=== PATIENT | male | born 1980 | race Caucasian/White ===

== ENCOUNTER 2018-02-28 13:39 | Emergency (ER) | payer MEDICAID, SELFPAY ==
[2018-02-28 13:42] VITALS: BP 153/98; PULSE 66; RESP 18; TEMP 36.8; O2SAT 96
[2018-02-28 13:56] LABS: Bilirubin Negative (Negative); Blood Negative (Negative); Clarity Clear; Glucose Negative (Negative); Ketones Negative (Negative); Leukocyte Esterase Negative (Negative); Nitrite Negative (Negative); Specific Gravity 1.015 (1.005-1.025); pH 6.5 (5-8)
[2018-02-28] MEDS: Normal Saline 1,000 ML 1000 ML IV (14:20)
[2018-02-28 14:43] LABS: Absolute Basophil Count 0.03 k/cumm (0.0-0.2); Absolute Eosinophil Count 0.17 k/cumm (0.0-0.7); Absolute Lymphocyte Count 1.37 k/cumm (1.2-3.4); Absolute Monocyte Count 0.46 k/cumm (0.11-0.7); Absolute Neutrophil Count 3.33 k/cumm (1.2-6.7); Basophils % 0.6; Eosinophils % 3.2; HCT 45.6 % (40.0-50.0); HGB 16.3 g/dL (13.5-17.5); Lymphocytes % 25.6; Mean Corp. HGB Concentration 35.7 g/dL (32.0-36.0); Mean Corpuscular Hemoglobin 34.2 pg (27.0-33.0); Mean Corpuscular Volume 95.6 fL (80-95); Mean Platelet Volume 10.6 fL (8.0-11.0); Monocytes % 8.6; Platelet Count 150 x1000/uL (130-400); RBC 4.77 m/cumm (4.50-6.00); RBC Distribution Width 12.5 % (11.8-14.1); White Blood Cell Count 5.36 k/cumm (4.4-10.8)
[2018-02-28 14:57] LABS: ALT 413 U/L (12-78); AST 359 U/L (15-37); Albumin 3.7 g/dL (3.4-5.0); Alkaline Phosphatase 131 U/L (46-116); Anion Gap 7.2 mmol/L (3-11); BUN 17 mg/dL (7-18); Bilirubin, Total 1.5 mg/dL (0.2-1.0); CO2 28.8 mmol/L (21.0-32.0); CREATININE 0.81 mg/dL (0.70-1.30); Calcium 9.2 mg/dL (8.5-10.1); Chloride 103 mmol/L (98-107); Glucose 101 mg/dL (70-100); Magnesium 2.2 mg/dL (1.8-2.4); Potassium 4.1 mmol/L (3.5-5.1); Sodium 139 mmol/L (136-145); Total Protein 8.3 g/dL (6.4-8.2)
[2018-02-28 15:09] LABS: *AMPHETAMINES SCREEN URINE Negative (Negative); *BARBITURATES SCREEN URINE POSITIVE (Negative); *BENZODIAZEPINES SCREEN URINE Negative (Negative); Cannabinoids THC POSITIVE (Negative); Cocaine Screen,Urine Negative (Negative); METHADONE URINE SCREEN Negative (Negative); OPIATES URINE SCREEN POSITIVE (Negative)
[2018-02-28 15:10] LABS: ETHANOL BLOOD < 3.0 mg/dL (<3)
[2018-02-28 15:11] LABS: Tricyclic Antidepressants Negative (Negative)
--- NOTE | 2018-02-28 15:40 | DI.US_ITS ---
SYMPTOM/DIAGNOSIS: LIVER FAILURE ABDOMINAL ULTRASOUND: Routine examination. The liver measures 15 cm in length. No evidence of an hepatic mass is seen. The gallbladder is negative. No gallbladder wall thickening, stones, sludge or pericholecystic fluid is seen. The common duct is within normal limits at 0.6 cm. Portions of the pancreas are difficult to visualize. The visualized portions of the body are unremarkable. The kidneys are normal in size and are unremarkable. The spleen is mildly enlarged measuring 15 cm in length. The aorta and IVC are unremarkable. IMPRESSION: Mild splenomegaly.
--- NOTE | 2018-02-28 17:24 | DI.VRAD_ITS ---
EXAM: US Abdomen Complete EXAM DATE/TIME: 02/28/2018 4:29 PM CLINICAL HISTORY: 37 years old, male; Pain; Other: Liver failure; Patient HX: Alcohol withdrawal x 1 day with pain that started this morning; Nausea/vomiting; RT flank pain > left flank pain TECHNIQUE: Real-time ultrasound of the abdomen with image documentation. COMPARISON: US ABDOMEN ULTRASOUND (P) 04/17/2016 8:44 PM FINDINGS: Liver: 14.6 cm liver. Gallbladder: 1.3 mm gallbladder wall. Common bile duct: 5.9 mm common bile duct. Pancreas: Normal. No ductal dilation. Right kidney: 11.1 x 5.2 x 4.0 cm right kidney. Left kidney: 12.6 x 5.2 x 4.8 cm left kidney. Spleen: Mild to moderate 14.6 x 8.9 x 11.9 cm splenomegaly. Aorta: 2.1 cm proximal abdominal aortic diameter. Inferior vena cava: Normal. IMPRESSION: Mild to moderate 14.6 x 8.9 x 11.9 cm splenomegaly. New since the previous exam. Dictated and Authenticated by: James Eugene MD. Ordering:MARIO DIOP MD
--- NOTE | 2018-02-28 17:37 | W.ED.GENAD ---
Discharge Plan Disposition Patient Disposition: HOME Discharge Details Chief Complaint: ETOHWithdr Clinical Impression: Back pain Primary Care Provider: Nancy Lubin ED Provider: Abbie Bravo Home Meds and New Rx's Prescriptions: Continue methylphenidate HCl [Concerta] 36 MG tablet extended release 24hr 36 mg PO DAILY RF: 0 ibuprofen 200 MG capsule 200 mg PO PRN PRNRF: 0 Discharge Instructions Instructions: Back Pain (ED) Additional Instructions: Do not drink alcohol Continue to contact [facility] for inpatient rehabilitation Referrals: Nancy Lubin [Primary Care Provider] - 1 day Medical Decision Making Patient presents with onset of back pain yesterday bilateral in the flank area. CBC CMP magnesium drawn. Labs show elevated total bili and transaminase. Patient with history of hep C. Given 1 L of normal saline. No active symptoms of withdrawal identified. Patient's vital signs are stable acute hepatitis panel ordered abdominal ultrasound which shows mild to moderate splenomegaly no other acute findings. While awaiting ultrasound report patient was requesting discharge to home stating he was agitated and he did not want to be here any longer. No emergency condition has been identified and patient is hemodynamically stable and stable for discharge to home. He was advised to call his primary care provider's office first thing tomorrow morning for a follow-up appointment or return sooner for new or worsening symptoms. Case management referral has been placed to obtain the appointment Imaging Data Radiologic Study: Imaging: Ultrasound (abdominal: splenomegaly) Lab Data Lab results reviewed: Yes I reviewed the patient's lab results. Patient presents for evaluation of bilateral low mid back pain, he denies any trauma states the onset was yesterday after he stopped drinking all. He is called [facility] and is hoping for an inpatient admission for treatment of alcohol abuse. He was referred here to the emergency department HPI General Date/Time Provider Initiated Documentation: 02/28/18 13:56. Related Data Home Medications Medication Instructions Recorded Confirmed ibuprofen 200 mg PO PRN PRN 02/05/15 02/28/18 methylphenidate HCl [Concerta] 36 mg PO DAILY 02/05/15 02/28/18 Allergies Allergy/AdvReac Type Severity Reaction Status Date / Time No Known Allergies Allergy Unverified 02/28/18 13:45 General Stated Complaint: ETOHWithdr ORI: 3 Review of Systems Review of Systems All systems reviewed & are unremarkable except as noted in HPI and below Constitutional Denies headache(s) ENT Denies headache(s) Musculoskeletal Denies abnormal gait and Reports back pain Neurologic Denies abnormal gait and Denies headache(s) Psychiatric Reports depression and Reports irritability [facility] Social History Smoking/Tobacco Use Status: Current every day Exam Const General: cooperative, disheveled and ill appearing chronically Nutritional Appearance: average body habitus Orientation: alert, awake and oriented x3 HENMT Head: normal to inspection Chest Chest: normal inspection of the chest Resp Effort & Inspection: normal respiratory effort Auscultation: clear to auscultation bilaterally Cardio Rate: regular rate Rhythm: regular rhythm GI Inspection: normal to inspection Palpation: soft Auscultation: normal bowel sounds Back/Spine/Pelvis Back: CVA tenderness (Bilateral), No erythema and No ecchymosis Thoracic/Lumbar Spine: thoracic and lumbar spine normal to inspection Skin General skin exam: no rashes or lesions noted and other (Multiple tattoos) Neuro General: alert, awake and oriented x3 Cognition: normal cognition Speech: speech normal Gait: normal gait Motor: muscle tone normal throughout and strength 5/5 throughout Extrem General: normal to inspection and full ROM Psych Appearance: disheveled Speech and Movement: speech and movement normal Affect: blunted Attitude: cooperative Course Vital Signs Temperature 36.8 C 02/28/18 13:42 Pulse 66 02/28/18 13:42 Respiratory Rate 18 02/28/18 13:42 Blood Pressure 153/98 H 02/28/18 13:42 Pulse Oximetry 96 02/28/18 13:42 Temperature 36.8 C 02/28/18 13:42 Temperature Source Temporal Artery Scan 02/28/18 13:42 Pulse 66 02/28/18 13:42 Respiratory Rate 18 02/28/18 13:42 Respiratory Pattern Normal 02/28/18 14:20 Blood Pressure 153/98 H 02/28/18 13:42 Pulse Oximetry 96 02/28/18 13:42 Oxygen Delivery Method Room Air 02/28/18 13:42 Oxygen Flow Rate 0 02/28/18 13:42 Pain Level 9 02/28/18 13:42 Lab/Test Results Lab/Test Results: Laboratory Tests Range/Units 02/28/18 02/28/18 02/28/18 13:49 13:49 14:23 WBC (4.4-10.8) k/cumm RBC (4.50-6.00) m/cumm Hgb (13.5-17.5) g/dL Hct (40.0-50.0) % MCV (80-95) fL MCH (27.0-33.0) pg MCHC (32.0-36.0) g/dL RDW (11.8-14.1) % Plt Count (130-400) x1000/uL MPV (8.0-11.0) fL Immature Gran % Neutrophils % Lymphocytes % Monocytes % Eosinophils % Basophils % Absolute Neutrophils (1.2-6.7) k/cumm Absolute Lymphocytes (1.2-3.4) k/cumm Absolute Monocytes (0.11-0.7) k/cumm Absolute Eosinophils (0.0-0.7) k/cumm Absolute Basophils (0.0-0.2) k/cumm Sodium (136-145) mmol/L 139 Potassium (3.5-5.1) mmol/L 4.1 Chloride (98-107) mmol/L 103 Carbon Dioxide (21.0-32.0) mmol/L 28.8 Anion Gap (3-11) mmol/L 7.2 BUN (7-18) mg/dL 17 Creatinine (0.70-1.30) mg/dL 0.81 Estimated GFR/1.73 m2 (mL/min/1.73m2) >= 60.00 Glucose (70-100) mg/dL 101 H Calcium (8.5-10.1) mg/dL 9.2 Magnesium (1.8-2.4) mg/dL 2.2 Total Bilirubin (0.2-1.0) mg/dL 1.5 H AST (15-37) U/L 359 H ALT (12-78) U/L 413 H Alkaline Phosphatase (46-116) U/L 131 H Total Protein (6.4-8.2) g/dL 8.3 H Albumin (3.4-5.0) g/dL 3.7 Urine Color (Yellow) Yellow Urine Clarity Clear Urine pH (5-8) 6.5 Ur Specific Seale (1.005-1.025) 1.015 Urine Protein (Negative) mg/dL Negative Urine Ketones (Negative) mg/dL Negative Urine Blood (Negative) Negative Urine Nitrite (Negative) Negative Urine Bilirubin (Negative) Negative Urine Urobilinogen (Up TO 0.2) EU/dL 1.0 H Ur Leukocyte Esterase (Negative) Negative Urine Glucose (Negative) mg/dL Negative Urine Opiates Screen (Negative) Positive Urine Methadone Screen (Negative) Negative Ur Barbiturates Screen (Negative) Positive Ur Tricyclics Screen (Negative) Negative Ur Amphetamines Screen (Negative) Negative U Benzodiazepines Scrn (Negative) Negative Urine Cocaine Screen (Negative) Negative Ur THC Screen (Negative) Positive Ethyl Alcohol (<3) mg/dL < 3.0 Range/Units 02/28/18 14:23 WBC (4.4-10.8) k/cumm 5.36 RBC (4.50-6.00) m/cumm 4.77 Hgb (13.5-17.5) g/dL 16.3 Hct (40.0-50.0) % 45.6 MCV (80-95) fL 95.6 H MCH (27.0-33.0) pg 34.2 H MCHC (32.0-36.0) g/dL 35.7 RDW (11.8-14.1) % 12.5 Plt Count (130-400) x1000/uL 150 MPV (8.0-11.0) fL 10.6 Immature Gran % 0.0 Neutrophils % 62.0 Lymphocytes % 25.6 Monocytes % 8.6 Eosinophils % 3.2 Basophils % 0.6 Absolute Neutrophils (1.2-6.7) k/cumm 3.33 Absolute Lymphocytes (1.2-3.4) k/cumm 1.37 Absolute Monocytes (0.11-0.7) k/cumm 0.46 Absolute Eosinophils (0.0-0.7) k/cumm 0.17 Absolute Basophils (0.0-0.2) k/cumm 0.03 Sodium (136-145) mmol/L Potassium (3.5-5.1) mmol/L Chloride (98-107) mmol/L Carbon Dioxide (21.0-32.0) mmol/L Anion Gap (3-11) mmol/L BUN (7-18) mg/dL Creatinine (0.70-1.30) mg/dL Estimated GFR/1.73 m2 (mL/min/1.73m2) Glucose (70-100) mg/dL Calcium (8.5-10.1) mg/dL Magnesium (1.8-2.4) mg/dL Total Bilirubin (0.2-1.0) mg/dL AST (15-37) U/L ALT (12-78) U/L Alkaline Phosphatase (46-116) U/L Total Protein (6.4-8.2) g/dL Albumin (3.4-5.0) g/dL Urine Color (Yellow) Urine Clarity Urine pH (5-8) Ur Specific Seale (1.005-1.025) Urine Protein (Negative) mg/dL Urine Ketones (Negative) mg/dL Urine Blood (Negative) Urine Nitrite (Negative) Urine Bilirubin (Negative) Urine Urobilinogen (Up TO 0.2) EU/dL Ur Leukocyte Esterase (Negative) Urine Glucose (Negative) mg/dL Urine Opiates Screen (Negative) Urine Methadone Screen (Negative) Ur Barbiturates Screen (Negative) Ur Tricyclics Screen (Negative) Ur Amphetamines Screen (Negative) U Benzodiazepines Scrn (Negative) Urine Cocaine Screen (Negative) Ur THC Screen (Negative) Ethyl Alcohol (<3) mg/dL
--- NOTE | 2018-03-01 09:21 | PDOC.ERCMPRO ---
Care Management Progress Note 03/01/18-Pt seen for splenomegaly by Johanna Bravo NP. Pt also states he called [facility] himself looking to detox as he abuses alcohol. Pt abruptly demaded to leave as he was getting agitated about the wait. f/u request faxed to [facility] as Stanton Lubin is Pt's PCP.
--- NOTE | 2018-03-01 09:24 | CMPROGNOTE_ITS ---
Care Management Progress Note 03/01/18-Pt seen for splenomegaly by Johanna Bravo NP. Pt also states he called [facility] himself looking to detox as he abuses alcohol. Pt abruptly demaded to leave as he was getting agitated about the wait. f/u request faxed to [facility] as Stanton Lubin is Pt's PCP.
[2018-03-01 10:44] LABS: Hepatitis A Antibody IgM Negative (NEGAT); Hepatitis B Core Antibody Negative (NEGAT); Hepatitis B surface Ag Negative (NEGAT); Hepatitis C Ab w Rflx HCV PCR Reactive (NEGAT)
== END 2018-02-28 17:44 | disposition home or self-care (01) ==
PROVIDERS: Emergency Provider Nurse Practitioner Acute Care; PCP Family Medicine
DX: F10.239 Alcohol dependence with withdrawal, unspecified (principal); M54.5 Low back pain; R16.1 Splenomegaly, not elsewhere classified
CPT/HCPCS: 36415; 80053; 80307; 86704; 86709; 86803; 87340; 96360; 99284; 76700; 80320; 81003; 83735; 85025; 87522

== ENCOUNTER 2020-11-26 16:01 | Outpatient (REF) | payer SELFPAY ==
[2020-11-26 21:58] LABS: Hemoglobin A1C 4.5 % (<5.7)
[2020-11-26 22:26] LABS: ALT 224 U/L (16-63); AST 189 U/L (15-37); Albumin 3.1 g/dL (3.4-5.0); Alkaline Phosphatase 233 U/L (46-116); BUN 19 mg/dL (7-18); CREATININE 0.7 mg/dL (0.70-1.30); Calcium 8.6 mg/dL (8.5-10.1); Calculated LDL 49 mg/dL (<100); Chloride 107 mmol/L (98-107); Cholesterol 105 mg/dL (<200); GGT 634 U/L (15-85); Glucose 92 mg/dL (74-106); HDL Cholesterol 46 mg/dL (40-60); Potassium 4.2 mmol/L (3.5-5.1); Sodium 140 mmol/L (136-145); Total Protein 7.4 g/dL (6.4-8.2); Triglyceride 50 mg/dL (<150)
[2020-11-29 14:46] LABS: HCV RNA Qualitative Detected (Undetected)
== END 2020-11-26 16:02 | disposition home or self-care (01) ==
LOC: NCHCN 16:01
PROVIDERS: PCP Family Medicine; Visit Provider Family Medicine
DX: E66.9 Obesity, unspecified (principal); R79.89 Other specified abnormal findings of blood chemistry; B19.20 Unspecified viral hepatitis C without hepatic coma
CPT/HCPCS: 80053; 80061; 87522; 82977; 83036